=== PATIENT | female | born 1965 | race Caucasian/White ===

== ENCOUNTER 2018-01-31 07:38 | Day surgery (SDC) | payer BC ==
[2015-09-30 14:34] VITALS: BMI 24.3
[2018-01-31] MEDS ORDERED: Propofol 10 mg/ml Inj (20 ML) ONE ×2 (08:52→09:08)
[2018-01-31] MEDS ORDERED: Sodium Chloride 0.9% 1,000 ML IV SCH (09:30)
[2018-01-31 10:14] VITALS: BP 127/84; PULSE 67; RESP 16; TEMP 98.1; O2SAT 100
== END 2018-01-31 10:53 | disposition home or self-care (01) ==
LOC: ENDO 07:38
PROVIDERS: ATTEND Internal Medicine Gastroenterology
DX: Z12.11 Encounter for screening for malignant neoplasm of colon (principal); K57.30 Diverticulosis of large intestine without perforation or abscess without bleeding; K64.0 First degree hemorrhoids
CPT/HCPCS: 45378; J2704; J7030; J7040